=== PATIENT | female | born 1980 | race Caucasian/White ===

== ENCOUNTER 2024-05-24 08:32 | Emergency (ER) | payer OTHER ==
[2024-05-24 08:38] VITALS: BP 147/79; PULSE 86; RESP 18; TEMP 98.3; BMI 23.8
[2024-05-24] MEDS ORDERED: BACITRACIN ZINC 15 GM TUBE TOPICAL OINTMENT ONE (10:13)
[2024-05-24] MEDS: BACITRACIN 0.9 GM PACKET TP ONE (10:14)
== END 2024-05-24 10:54 | disposition home or self-care (01) ==
LOC: JERFT 08:32
PROC: 0HQLXZZ Repair Left Lower Leg Skin, External Approach (ICD-10-PCS; principal; 2024-05-24)
PROC: 2W3RX1Z Immobilization of Left Lower Leg using Splint (ICD-10-PCS; 2024-05-24)
DX: S91.312A Laceration without foreign body, left foot, initial encounter (principal); W26.8XXA Contact with other sharp object(s), not elsewhere classified, initial encounter
CPT/HCPCS: 99283-25